=== PATIENT | female | born 1965 | race Caucasian/White ===

== ENCOUNTER 2024-10-05 08:30 | Emergency (ER) | payer OTHER ==
[~2024-10-05] VITALS: Ht 149.9 cm; Wt 39.3 kg
[2024-10-05] MEDS ORDERED: MORPHINE SULFAT15 M1 PO (08:51)
[2024-10-05] MEDS ORDERED: NIFEDIPINE ER90 M1 PO (08:52)
[2024-10-05] MEDS ORDERED: HYDRALAZINE HCL50 MG PO (08:52)
[2024-10-05] MEDS ORDERED: LABETALOL HCL100 MG PO (08:52)
[2024-10-05 09:33] VITALS: BP 136/83
--- OUTSIDE RECORDS SUMMARY | 2024-10-05 10:29 | XMS ---
PreManage Notification: LON ANTONIO Security Accounts Payable Supervisor Events No recent Security Events currently on file CRITERIA MET - [facility] - 2 Visits in 30 Days CARE PROVIDERS -, [facility] Dentist: New Car Sales Manager Current [employer] PHONE: [phone] Anna has no Care Guidelines for this patient. Sweta VISIT COUNT (12 MO.) [address] TOTAL 4 NOTE: Visits indicate total known visits. ED/UCC VISIT TRACKING (12 MO.) 10/05/2024 08:[address] [facility] [place] TYPE: Emergency COMPLAINT: - BLOOD PRESSURE ISSUES 10/04/2024 03:55 [facility] [place] TYPE: Emergency DIAGNOSES: - End stage renal disease - Hyperkalemia - Malignant neoplasm of cervix uteri, unspecified - Secondary malignant neoplasm of unspecified site - General 09/07/2024 09:40 [facility] [place] TYPE: Emergency DIAGNOSES: - End stage renal disease - Fluid overload, unspecified - Hyperkalemia - GENERAL 09/03/2024 12:44 [facility] [place] TYPE: Emergency DIAGNOSES: - Chronic kidney disease, unspecified - Hyperkalemia - NEEDS DIALYSIS INPATIENT VISIT TRACKING (12 MO.) 09/03/2024 12:44 [facility] TYPE: Medical Surgical DIAGNOSES: - Chronic kidney disease, unspecified - Hyperkalemia [email or web address]
== END 2024-10-05 09:33 | disposition home or self-care (01) ==
LOC: ED 08:30
DX: R42 Dizziness and giddiness (principal); J44.9 Chronic obstructive pulmonary disease, unspecified; N18.6 End stage renal disease; Z99.2 Dependence on renal dialysis; Z88.0 Allergy status to penicillin; Z79.899 Other long term (current) drug therapy
CPT/HCPCS: 99283